=== PATIENT | female | born 1995 | race Caucasian/White ===

== ENCOUNTER 2019-10-03 11:21 | Emergency (ER) | payer OTHER ==
[~2019-10-03] VITALS: Ht 172.7 cm; Wt 63.5 kg
[2019-10-03] MEDS ORDERED: SEROQUEL200 MG (11:41)
[2019-10-03] MEDS ORDERED: SEROQUEL50 MG PO (11:41)
[2019-10-03] MEDS ORDERED: SEROQUEL100 MG PO (11:41)
[2019-10-03] MEDS ORDERED: SUCRALFATE1 GM PO (11:42)
[2019-10-03] MEDS ORDERED: NEURONTIN600 MG PO (11:42)
[2019-10-03] MEDS ORDERED: VIVARIN200 MG PO (11:43)
[2019-10-03] MEDS ORDERED: BIOTIN10 MG PO (11:45)
[2019-10-03] MEDS ORDERED: VITAMIN B122500 MC1 PO (11:45)
[2019-10-03] MEDS ORDERED: ZYPREXA10 MG PO (11:45)
[2019-10-03] MEDS ORDERED: MINIPRESS1 MG PO (11:47)
--- NOTE | 2019-10-04 16:36 | EKG ---
[facility] [address] [facility] [place] [address] Signed Normal sinus rhythm Normal ECG No previous ECGs available Confirmed by DIEGO HARRISON DO ([id number]) on 10/04/2019 4:36:38 PM Electronically Signed By: DIEGO HARRISON DO 10/04/19 1636 PATIENT NAME: KAREN PITTS KRISTEN Electrocardiogram DATE OF : [birth year] PHYSICIAN: DIEGO HARRISON DO REPORT #: [id number] REPORT IS CONFIDENTIAL AND NOT TO BE RELEASED WITHOUT AUTHORIZATION
== END 2019-10-03 13:37 | disposition home or self-care (01) ==
LOC: ED 11:21
DX: R53.1 Weakness (principal); K21.9 Gastro-esophageal reflux disease without esophagitis; F41.9 Anxiety disorder, unspecified; Z88.1 Allergy status to other antibiotic agents; Z79.899 Other long term (current) drug therapy
CPT/HCPCS: 80053; 81001; 84703; 85025; 93005; 93010; 99285-25

== ENCOUNTER 2022-10-13 06:33 | Day surgery (SDC) | payer OTHER ==
[~2022-10-13] VITALS: Ht 172.7 cm; Wt 60.3 kg
[~2022-10-13 06:33] MED LIST: BIOTIN10 MG PO; DEPO-PROVE150 MG/1 M; K-TAB ER20 MEQ PO; L-CARNITINE25 GM MISC; LIPOIC ACID25 GM PO; LYRICA150 MG PO; MAG-OXIDE200 MG PO; MELATONIN3 MG PO; MINIPRESS1 MG PO; MYLANTA COAT-C355 ML PO; NEURONTIN600 MG PO; OLANZAPINE10 MG PO; PEPCID20 MG PO; PROMETHAZINE HC25 M1; SEROQUEL100 MG PO; SEROQUEL200 MG; SEROQUEL50 MG PO; SPRINTEC1 EACH PO; SUCRALFATE1 GM PO; TYLENOL325 M1 PO; VENTOLIN HFA18 GM INH; VITAMIN B122500 MC1 PO; VIVARIN200 MG PO; ZYPREXA10 MG PO
[2022-10-13 07:00] VITALS: BP 113/77
--- NOTE | 2022-10-13 08:04 | NUR ---
10/13/22 0804 Chen Schuler PT TO PACU DROWSY RESPONDS TO QUESTIONS. DENIES PAIN OR NAUSEA.
[2022-10-13 08:27] VITALS: BP 111/79
--- NOTE | 2022-10-13 08:58 | OR ---
[facility] [address] [place], [place] [address] Signed DATE OF OPERATION: 10/13/2022 SURGEON: Sherrell Mccray MD PREOPERATIVE DIAGNOSES: 1. Gastroesophageal reflux disease. 2. Anorexia nervosa. POSTOPERATIVE DIAGNOSES: 1. Mild diffuse punctate hemorrhagic gastritis. 2. Hiatal hernia (38-35 cm). 3. Esophageal dysphagia. PROCEDURES: EGD with CLOtest, biopsy of the duodenum, antrum, GE junction and midesophagus. ESTIMATED BLOOD LOSS: None. INDICATIONS: Orlando is a 27-year-old female with a history of bipolar affective disorder, anxiety, PTSD, neuropathy, anorexia nervosa and acid reflux. She has been asked to see me for an upper endoscopy relative to the acid reflux. She spoke of an upper endoscopy in 2010 at the age of 15 at [facility] in [place], [place]. She cannot remember the details. We have been trying to track down those results. She has been using Mylanta, Pepcid, sucralfate, omeprazole and Dexilant. She said the last six months her symptoms seem to be getting worse. Therefore, her primary care provider wanted to repeat the upper endoscopy. She is yet to undergo a barium swallow. She comes in with her fiance to the office, who now is her . I had given them a brochure on acid reflux and upper endoscopy. We have reviewed that in detail. She understands the nature of the test. There is risk including, but not limited to gas bloating, crampy abdominal pain, bleeding, perforation requiring surgery and missed diagnosis. We also reviewed the need for IV conscious sedation. She had expressed understanding and wished to proceed. PROCEDURE NOTE: Orlando was taken into our endoscopy suite and placed in the supine semi-recumbent position. The posterior oropharynx was anesthetized with lidocaine spray. A bite block was utilized for the case. She was given a total of 7 mg of Versed and 100 mcg of fentanyl to cover the case. Even then, she was wide awake and looking around. It was a little difficult, but overall she did fine. She would be much better served in the Electronically Signed By: SHERRELL MCCRAY MD 10/13/22 0858 PATIENT NAME: ORLANDO PITTS OPERATIVE REPORT DATE OF : [birth year] REPORT #: [id number] PHYSICIAN: SHERRELL MCCRAY MD PCP: DANA CANO MD REPORT IS CONFIDENTIAL AND NOT TO BE RELEASED WITHOUT AUTHORIZATION [facility] [address] [place], [place] [address] Signed future with monitored anesthesia care and propofol infusion. The adult gastroscope had been introduced and advanced all the way out into the third portion of the duodenum. The duodenum and pyloric channel were unremarkable. We went ahead and took a biopsy of the 2nd portion of the duodenum. The stomach showed mild diffuse punctate hemorrhagic gastritis throughout. We took a biopsy of the antrum for CLOtest as well as pathologic review. Upon retroflexion of the scope, we could see that she has a small hiatal hernia. It measured from 38 cm back to 35 cm. Consequently, the GE junction is at 35 cm. She has a little bit of inflammation along the Z-line, but no Kirkland's mucosa. The distal, middle and upper esophagus were unremarkable. We went ahead and took a biopsy of the midesophagus due to the history of dysphagia. After this, the gas was suctioned out and the gastroscope removed. The vocal cords, arytenoids and the epiglottis were all unremarkable. Overall, Orlando tolerated the procedure well. Again, she would do better with propofol infusion in the future. RECOMMENDATIONS: I will see Orlando back in my office in 7 to 14 days to review her results. She might consider a barium swallow as well. Sherrell Mccray MD ALB/MODL /[id number] cc: MD Sherrell Macias MD Copies: SHERRELL MCCRAY MD ~ Electronically Signed By: SHERRELL MCCRAY MD 10/13/22 0858 PATIENT NAME: ORLANDO PITTS [place] OPERATIVE REPORT DATE OF : [birth year] REPORT #: [id number] PHYSICIAN: SHERRELL MCCRAY MD PCP: DANA CANO MD REPORT IS CONFIDENTIAL AND NOT TO BE RELEASED WITHOUT AUTHORIZATION
--- NOTE | 2022-10-13 13:52 | NUR ---
PT IN BED. ACCOMPANIED BY MALE BAG MAKING MACHINE TENDER WHO DID NOT INTERACT WITH ME. PT SEEMED IN GOOD SPIRITS. EXPRESSED HOPE FOR DEFINITIVE DIAGNOSIS AND RELIEF FROM DISCOMFORT. DENIED ANY NEEDS. PRAYED.
--- NOTE | 2022-10-15 15:42 | PATH ---
[facility] [address] [place], [place] [address] Signed SPECIMEN(S): A DUODENAL BIOPSY SPECIMEN(S): B ANTRUM/ANTRAL BIOPSY SPECIMEN(S): C GE JUNCTION SPECIMEN(S): D MIDDLE ESOPHAGEAL BIOPSY SPECIMEN SOURCE: A. DUODENAL BIOPSY B. ANTRUM/ANTRAL BIOPSY C. GE JUNCTION D. MIDDLE ESOPHAGEAL BIOPSY CLINICAL HISTORY: Acid reflux, anorexia. Postop: Gastritis, hiatal hernia. FINAL PATHOLOGIC DIAGNOSIS: A. Duodenal biopsy: - Benign duodenal mucosa, negative for specific diagnostic abnormality. B. Antrum / antral biopsy: - Diffuse acute and chronic gastritis. - Helicobacter pylori immunostain is negative for organisms. C. GE junction biopsy: - Esophageal and gastric-type mucosa with focal slight chronic inflammation. - Negative for specialized intestinal metaplasia or dysplasia. D. Middle esophageal biopsy: - Benign esophageal mucosa, negative for increased epithelial eosinophils. JVR:sm:C2NR MICROSCOPIC EXAMINATION: Histologic sections of all submitted blocks are examined by light microscopy. These findings, together with the gross examination, support the pathologic diagnosis. A Helicobacter pylori immunostain is performed with appropriate positive and negative controls on block (B1) and is negative for organisms. JVR:sm GROSS DESCRIPTION: A. The specimen, labeled and designated "Raquel, duodenal biopsy," is received in formalin and consists of two rogel soft tissue fragments, ranging from 0.2-0.3 cm. Entirely submitted in (A1). B. The specimen, labeled and designated "Raquel, antrum biopsy," is received in formalin and consists of one rogel soft tissue fragment, 0.4 cm. Entirely PATIENT NAME: KAERN PITTS PATHOLOGY DATE OF : [birth year] REPORT #: [id number] PHYSICIAN: OLIVIA QUACH PCP: DANA CANO MD REPORT IS CONFIDENTIAL AND NOT TO BE RELEASED WITHOUT AUTHORIZATION [facility] [address] [place], [place] [address] Signed submitted in (B1). C. The specimen, labeled and designated "Raquel, GE junction biopsy," is received in formalin and consists of two rogel soft tissue fragments, ranging from 0.2-0.3 cm. Entirely submitted in (C1). D. The specimen, labeled and designated "Raquel, middle esophageal biopsy," is received in formalin and consists of one rogel soft tissue fragment, 0.5 cm. Entirely submitted in (D1). VB (under the direct supervision of a pathologist) The Gross Description was prepared using a voice recognition system. The report was reviewed for accuracy; however, sound-alike word errors, addition and/or deletions may occur. If there is any question about this report, please contact Client Services. ADDITIONAL NOTES: Immunohistochemical and/or in situ hybridization studies were performed on this case with the appropriate positive controls that react as expected. This test was developed and its performance characteristics determined by [facility]. It has not been cleared or approved by the U.S. Food and Drug Administration. The FDA has determined that such clearance or approval is not necessary. This test is used for clinical purposes. It should not be regarded as investigational or for research. [facility] is certified under the Clinical Laboratory Improvement Amendments of 1988 (CLIA) as qualified to perform high complexity clinical laboratory testing. This assay has not been validated for specimens that have been decalcified. PERFORMING LABORATORY: Technical component was performed by [facility], [address] [place] [id number] (CLIA# [id number]). Diagnostician: Jony Urena MD Pathologist Electronically Signed 10/15/2022 Copies: ~ PATIENT NAME: KAREN PITTS KRISTEN PATHOLOGY DATE OF : [birth year] REPORT #: [id number] PHYSICIAN: OLIVIA QUACH PCP: DANA CANO MD REPORT IS CONFIDENTIAL AND NOT TO BE RELEASED WITHOUT AUTHORIZATION
== END 2022-10-13 08:35 | disposition home or self-care (01) ==
LOC: DS 06:33 → OPS 06:33 → DS 07:30 → OPS 08:35
PROVIDERS: ATTEND Colon & Rectal Surgery
PROC: 0DB68ZX Excision of Stomach, Via Natural or Artificial Opening Endoscopic, Diagnostic (ICD-10-PCS; principal; 2022-10-13 07:30)
DX: K21.9 Gastro-esophageal reflux disease without esophagitis (principal); K29.01 Acute gastritis with bleeding; K29.51 Unspecified chronic gastritis with bleeding; F50.00 Anorexia nervosa, unspecified; F43.10 Post-traumatic stress disorder, unspecified; F31.9 Bipolar disorder, unspecified; K44.9 Diaphragmatic hernia without obstruction or gangrene
CPT/HCPCS: 36415; 84703; 87077; 88305; 88342; 99153; G0500; J2250; J3010; J7121

== ENCOUNTER 2024-04-14 09:29 | Emergency (ER) | payer OTHER ==
[~2024-04-14] VITALS: Ht 172.7 cm; Wt 62.6 kg
[~2024-04-14 09:29] MED LIST changes: +DOXYCYCLINE HY100 MG PO
[2024-04-14 10:05] LABS: BASOPHILS 0.5 % (0-2); EOSINOPHILS 2.7 % (0-6); HEMATOCRIT 45.8 % (35.0-50.0); HEMOGLOBIN 15.6 g/dL (12.0-18.0); LYMPHOCYTES 28.6 % (24-44); MCH 29.9 (27-36); MCHC 33.9 g/dl (30-36); MONOCYTES 5.5 % (0-12); NEUTROPHILS 62.7 % (39-80); PLATELET COUNT 300 K/uL (140-440); RDW 12.7 (10.5-15.0)
[2024-04-14 10:20] LABS: ALBUMIN 4.6 g/dL (3.4-5.0); ALBUMIN/GLOBULIN RATIO 1.35 (1.1-2.4); ANION GAP 13.9 (7-21); BUN/CREATININE RATIO 7.14 (6.0-28.6); CALCIUM 9.7 mg/dL (8.5-10.1); CREATININE, SERUM 0.98 mg/dL (0.55-1.02); POTASSIUM 3.9 mmol/L (3.5-5.1)
[2024-04-14] MEDS ORDERED: SODIUM CHLORIDE 0.9% 1,000 ML IV PRN (11:30)
[2024-04-14 12:04] LABS: BILIRUBIN, URINE NEGATIVE (negative); BLOOD/HGB, URINE NEGATIVE (Negative); KETONE, URINE TRACE (Negative); LEUK ESTERASE, URINE NEGATIVE (negative); NITRITE, URINE NEGATIVE (negative); PH, URINE 7.5 (5-7)
[2024-04-14] MEDS ORDERED: ONDANSETRON ODT4 MG PO (13:04)
[2024-04-14 13:13] VITALS: BP 135/85
== END 2024-04-14 13:14 | disposition home or self-care (01) ==
LOC: ED 09:29
PROVIDERS: Emergency Medicine
DX: R11.2 Nausea with vomiting, unspecified (principal); R19.7 Diarrhea, unspecified; R10.32 Left lower quadrant pain; K21.9 Gastro-esophageal reflux disease without esophagitis; Z88.0 Allergy status to penicillin; Z79.899 Other long term (current) drug therapy
CPT/HCPCS: 36415; 80053; 81003; 83690; 84703; 85025; 99284; J7030